=== PATIENT | male | born 1965 | race Caucasian/White ===

== ENCOUNTER 2022-05-20 22:28 | Emergency (ER) | payer OTHER ==
[~2022-05-20] VITALS: Ht 177.8 cm; Wt 104.3 kg
[2022-05-20 22:37] VITALS: BP 144/89
[2022-05-20] MEDS ORDERED: TETRACAINE HCL 0.5% OPHTALMIC 15 ML BOTTLE OP ONE (23:00)
[2022-05-20] MEDS ORDERED: FLUORESCEIN SODIUM OPHTH 1 EA STRIP ONE (23:13)
[2022-05-20] MEDS ORDERED: CIPR2.5D14 LEFTEYE (23:18)
[2022-05-20] MEDS ORDERED: FLUORESCEIN SODIUM OPHTH 1 EA STRIP OP ONE (23:30)
== END 2022-05-20 23:28 | disposition home or self-care (01) ==
LOC: ER 22:30
DX: S05.02XA Injury of conjunctiva and corneal abrasion without foreign body, left eye, initial encounter (principal); I10 Essential (primary) hypertension; X58.XXXA Exposure to other specified factors, initial encounter; Y93.9 Activity, unspecified; Y92.89 Other specified places as the place of occurrence of the external cause; Y99.8 Other external cause status